=== PATIENT | male | born 1970 | race African-American/Black ===

== ENCOUNTER 2022-06-05 19:05 | Emergency (ER) | payer MEDICAID, SELFPAY ==
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
[2022-06-05 19:20] VITALS: BP 138/63; BP 144/95; PULSE 92; PULSE 94; RESP 20; TEMP 37; O2SAT 98; O2SAT 99; BMI 27.8
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
== END 2022-06-05 23:55 | disposition home or self-care (01) ==
PROVIDERS: Emergency Provider Emergency Medicine Emergency Medical Services
DX: M79.604 Pain in right leg (principal); M25.562 Pain in left knee; M25.561 Pain in right knee
CPT/HCPCS: 99283